=== PATIENT | male | born 1990 | race American Indian/Alaskan Native ===

== ENCOUNTER 2024-10-09 15:42 | Emergency (ER) | payer SELFPAY ==
[2024-10-09] MEDS: Ketorolac 60 MG/2 ML SDV IM ONE (16:55)
== END 2024-10-09 17:00 | disposition home or self-care (01) ==
LOC: JD.ED 15:42
DX: K08.89 Other specified disorders of teeth and supporting structures (principal)
CPT/HCPCS: 96372; 99282; J1885